=== PATIENT | male | born 1985 | race Caucasian/White ===

== ENCOUNTER 2017-05-05 09:09 | Emergency (ER) | payer BC ==
[2017-05-05] MEDS ORDERED: Proparacaine 0.5% Ophth Soln 15 ML Bottle EYEBOTH STA (09:28)
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
[2017-05-05 10:07] VITALS: BP 129/86
== END 2017-05-05 10:04 | disposition home or self-care (01) ==
LOC: MW.ED 09:09
DX: S05.02XA Injury of conjunctiva and corneal abrasion without foreign body, left eye, initial encounter (principal); Z88.8 Allergy status to other drugs, medicaments and biological substances; X58.XXXA Exposure to other specified factors, initial encounter
CPT/HCPCS: 99282; 99283

== ENCOUNTER 2018-11-15 17:56 | Emergency (ER) | payer BC ==
[2018-11-15] MEDS ORDERED: Sodium Chloride 0.9% 10 ML Syringe FLUSH PRN (18:06)
[2018-11-15] MEDS ORDERED: Sodium Chloride 0.9% 2.5 ML Syringe FLUSH PRN (18:06)
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
--- NOTE | 2018-11-15 18:42 | CR ---
INDICATION: chest pain with left sided arm numbness TECHNIQUE: Chest radiograph 1 view COMPARISON: None FINDINGS: Mediastinum: A right-sided aortic arch is present. The heart silhouette is normal in size and morphology. Lung: There is a 4 mm nodular density in the left apex. No sign of pleural effusion seen. No pneumothorax is identified. Musculoskeletal: Unremarkable for age. IMPRESSIONS: 1. A right-sided aortic arch is present. 2. There is a 4 mm nodular density in the left apex. This may represent a small granuloma given its density for size. Comparison with any prior outside imaging is recommended. If these cannot be obtained, follow up chest radiograph in 3 months is warranted to document stability. Dictated by Reginald Ramirez MD @ 11/15/2018 6:40:30 PM Dictated by: Reginald Ramirez MD @ 11/15/2018 18:40:56 (Electronically Signed)
[2018-11-15 18:58] LABS: CHLORIDE,CL 101 mmol/L (98-107); SODIUM,NA 139 mmol/L (136-148)
[2018-11-15 22:59] VITALS: BP 112/70
== END 2018-11-15 19:34 | disposition home or self-care (01) ==
LOC: MW.ED 17:56
DX: R07.9 Chest pain, unspecified (principal); F17.210 Nicotine dependence, cigarettes, uncomplicated
CPT/HCPCS: 36415; 71045; 71045-26; 80053; 84484; 85025; 93005; 99285-25

== ENCOUNTER 2019-06-30 11:23 | Emergency (ER) | payer BC ==
[2019-06-30 11:37] VITALS: BP 135/82; PULSE 66
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
--- NOTE | 2019-06-30 13:03 | CR ---
Right ankle: Two views of the right ankle were obtained. Comparison: No previous ankle study. Slight deformity is noted of the distal and lateral tibia compatible with old injury. Ankle mortise is symmetric. No acute fracture or other bony abnormality is seen. Impression: 1. Findings of old injury. 2. Nothing acute is seen on two-view right ankle exam. Diagnostic code #2 MTDD
--- NOTE | 2019-06-30 13:04 | CR ---
Right foot: Three views of the right foot were obtained. Comparison: Prior right foot study of 02/09/09. Joint spaces are preserved. No acute fracture, dislocation or other bony abnormality is seen. Impression: Nothing acute is seen on right foot exam. Diagnostic code #1 MTDD
== END 2019-06-30 13:15 | disposition home or self-care (01) ==
LOC: MW.ED 11:23
DX: S90.31XA Contusion of right foot, initial encounter (principal); Z88.8 Allergy status to other drugs, medicaments and biological substances; W22.8XXA Striking against or struck by other objects, initial encounter; Y92.830 Public park as the place of occurrence of the external cause; Y93.44 Activity, trampolining
CPT/HCPCS: 73600-26-RT; 73600-RT; 73630-26-RT; 73630-RT; 99283; 99283-25

== ENCOUNTER 2024-09-17 09:29 | Emergency (ER) | payer BC ==
[2024-09-17] MEDS ORDERED: Sodium Chloride 0.9% 2.5 ML Syringe FLUSH PRN (09:40)
[2024-09-17] MEDS ORDERED: Sodium Chloride 0.9% 10 ML Syringe FLUSH PRN (09:40)
[2024-09-17 09:46] LABS: BASOPHILS ABSOLUTE AUTO 0.03 K/uL (0.00-0.20); BASOPHILS PERCENT AUTO 0.8 % (0.0-1.0); EOSINOPHILS ABSOLUTE AUTO 0.04 K/uL (0.00-0.45); EOSINOPHILS PERCENT AUTO 1.1 % (0.0-6.0); HEMATOCRIT 38.8 % (42.0-52.0); HEMOGLOBIN 14.1 g/dL (14.0-18.0); IMMATURE GRAN ABSOLUTE AUTO 0.01 K/uL (0.00-0.05); IMMATURE GRAN PERCENT AUTO 0.3 % (0.0-0.4); LYMPHOCYTES PERCENT AUTO 22.3 % (24.0-44.0); MEAN CORPUSCULAR HEMOGLOBIN 33.3 pg (28.0-32.0); MEAN CORPUSCULAR HGB CONC 36.3 g/dL (32.0-36.0); MEAN CORPUSCULAR VOLUME 91.5 fL (83.0-99.0); MEAN PLATELET VOLUME 8.6 fL (9.4-12.4); MONOCYTES ABSOLUTE AUTO 0.44 K/uL (0.00-0.80); MONOCYTES PERCENT AUTO 12.3 % (0.0-8.0); NEUTROPHILS ABSOLUTE AUTO 2.27 K/uL (1.80-7.70); NEUTROPHILS PERCENT AUTO 63.2 % (41.0-71.0); PLATELET COUNT,PLT 196 K/uL (150-400); RED BLOOD CELL COUNT 4.24 M/uL (4.52-5.90); WHITE BLOOD CELL COUNT,WBC 3.59 K/uL (3.9-11.3)
[2024-09-17 10:06] LABS: INR 0.99 (0.86-1.11)
[2024-09-17 10:25] LABS: A/G RATIO 1.1 (0.9-1.6); ALBUMIN 3.8 g/dL (3.4-5.0); BILIRUBIN TOTAL 0.8 mg/dL (0.2-1.0); CALCIUM 8.6 mg/dL (8.5-10.1); CARBON DIOXIDE,CO2 24.3 mmol/L (21.0-32.0); EST CRCL DRUG DOSING (CG) 94.05 mL/min; POTASSIUM,K 3.4 mmol/L (3.5-5.1); PROTEIN TOTAL,TP 7.4 g/dL (6.4-8.2)
[2024-09-17] MEDS: Iopamidol 755 MG/ML 500 ML Multipack Bottle IVPUSH STA (13:26)
[2024-09-17 15:23] VITALS: BP 147/88; PULSE 82
== END 2024-09-17 15:22 | disposition home or self-care (01) ==
LOC: MW.ED 09:29
DX: R07.89 Other chest pain (principal); R20.2 Paresthesia of skin; F17.210 Nicotine dependence, cigarettes, uncomplicated; Z88.8 Allergy status to other drugs, medicaments and biological substances; Z75.8 Other problems related to medical facilities and other health care
CPT/HCPCS: 36415; 71045; 71275; 80053; 83690; 83880; 84484; 85025; 85610; 87428; 93005; 99285; Q9967